=== PATIENT | female | born 1970 | race Hispanic/Latino ===

== ENCOUNTER → 2022-09-08 | Day surgery (SDC) | payer BC ==
[~2022-09-08] MED LIST: DICYCLOMINE HCL10 MG PO; EPINEPHRINE HCL 1:1000 1ML 1 MG/ML AMP ONE; FAMOTIDINE20 MG PO; GLYCOPYRROLATE INJ 0.2 MG/ML VIAL ONE; LACTATED RINGER'S 1,000 ML ONE; LIDOCAINE HCL 2% LOCAL INJ 5 ML SDV VIAL INJ ONE; LISINOPRIL10 MG PO; MIDAZOLAM HCL 2 MG/2 ML VIAL ONE; POVIDONE IODINE 0.05% 0.05 % ML PO ONE; PROPOFOL IV EMULSION 10 MG/ML 20 ML VIAL ONE; VITAMIN D250 MCG PO
[2022-09-08 15:35] VITALS: BP 151/87; PULSE 67; RESP 18; TEMP 97.6; O2SAT 100
== END | disposition home or self-care (01) ==
LOC: OR 12:44
PROVIDERS: ATTEND Internal Medicine Gastroenterology
DX: Z12.11 Encounter for screening for malignant neoplasm of colon (principal); D12.0 Benign neoplasm of cecum; D12.4 Benign neoplasm of descending colon; D12.8 Benign neoplasm of rectum; K31.7 Polyp of stomach and duodenum; K29.70 Gastritis, unspecified, without bleeding; K21.9 Gastro-esophageal reflux disease without esophagitis; K44.9 Diaphragmatic hernia without obstruction or gangrene; K57.30 Diverticulosis of large intestine without perforation or abscess without bleeding; K64.8 Other hemorrhoids; I10 Essential (primary) hypertension; E78.5 Hyperlipidemia, unspecified; Z01.810 Encounter for preprocedural cardiovascular examination; Z79.899 Other long term (current) drug therapy; Z68.33 Body mass index [BMI] 33.0-33.9, adult
CPT/HCPCS: 43239; 45381; 45384; 45385; 93005; J0171; J2001; J2250; J2704; J7121